=== PATIENT | female | born 1990 | race Caucasian/White ===

== ENCOUNTER 2017-09-26 11:01 | Emergency (ER) | payer MEDICAID, OTHER ==
[~2017-09-26 11:01] MED LIST: BUTA1CAP4 PO; CEPH500T7 PO; CIPR-344 PO; CITA-156 PO; CLIN300C99 PO; ETHI1TAB3 PO; FAMO20TA28 PO; FLUO40CA76 PO; HYDR-317 PO; HYDR-318 PO; HYDR2TAB74 PO; IBUP-1671 PO; IBUP200C71 PO; IBUP600T22 PO; KET10 PO; MAGNESIUM PO; METH4TAB66 PO; ONDA4TAB PO; ONDA4TAB9 PO; ONDA4TAB97 PO; OXYC-373 PO; OXYC-374 PO; PER PO; PHEN200T32 PO; PROM-110 PO; SULF-198 PO; TAMS0.4C25 PO; [UNRECOGNIZED DRUG - CODE] PO
[2017-09-26 11:05] VITALS: BP 98/86
[2017-09-26] MEDS ORDERED: VENL37.594 PO (11:12)
--- NOTE | 2017-09-26 11:25 | ER Report ---
History and Physical Time Seen By MD: 11:13 Hx. of Stated Complaint: cough, sob, been sick almost two weeks. on antibiotics HPI/ROS chief concern: cough x2 weeks HPI: 26 y/o female presents with concern of productive cough [id number]. Reports 1.5 weeks ago, she was seen in an urgent care due to cough and dyspnea that did not resolve with use of her nebulizer. She was provided with an albuterol inhaler, with no relief of symptoms. She was given a 4 day course of steroids, with initial relief, but symptoms returned. Three days ago, she returned and was given azithromycin x5days and 1day dose of steroids. Reports her symptoms have worsened, she is experiencing chills and excessive diaphoresis but no recorded temperature. She is experiencing wheezing, chest tightness, right ear pain, new onset nausea and diarrhea x2-3 days. Reports she has been using albuterol inhaler every 4-6 hours for the past week. Review of Systems: General: Reports chills/sweats. Denies temperature HENT: Reports right ear pain, denies sore throat. Respiratory: Reports productive cough, wheezing, chest tightness, shortness of breath CV: Denies chest pain, palpitations GI: Reports nausea and diarrhea, denies hematochezia, mucus, hematemesis. Allergies: Coded Allergies: Cephalosporins (Verified Allergy, Severe, ANAPHYLAXIS, 09/26/17) amoxicillin (Verified Allergy, Intermediate, RASH, 09/26/17) Home Meds Active Scripts Ipratropium/Albuterol Sulfate (IPRAT-ALBUT 0.5-3(2.5) MG/3 ML) 3 Ml Ampul.neb, 3 ML IH Q4-6H for asthma for 14 Days, #20 VIAL Prov:HORACE ONEAL 09/26/17 Promethazine HCl/Codeine (Prometh-Codein 6.25-10 mg/5 ml) 5 Ml Syrup, 1 TSP PO QHS Y for COUGH, #120 ML Prov:HORACE ONEAL 09/26/17 Hydrocodone/Acetaminophen (Lortab 7.5-325 mg Tablet) 1 Each Tablet, 1 TAB PO Q4- 6H Y for MODERATE PAIN, #20 TAB Prov:DAVION GILL MD 05/01/16 Reported Medications Venlafaxine Hcl (EFFEXOR XR) 37.5 Mg Cap.er.24h, 37.5 MG PO QDAY 09/26/17 Hydrocodone/Acetaminophen (Lortab 7.5-325 mg Tablet) 1 Each Tablet, 1 TAB PO Q4- 6H Y for PAIN, #30 TAKE ONE TABLET BY MOUTH EVERY 4-6 HOURS NEEDED FOR PAIN 04/24/16 Ibuprofen (IBUPROFEN) 600 Mg Tablet, 1 TAB PO TID Y for PAIN, #50 TAB 04/24/16 Famotidine (PEPCID) 20 Mg Tablet, 20 MG PO BID, #20 TAB 04/24/16 Fluoxetine Hcl (PROZAC) 40 Mg Capsule, 40 MG PO QDAY, CAPSULE 08/05/15 Discontinued Reported Medications Ciprofloxacin Hcl (CIPRO) 500 Mg Tablet, 250 MG PO BIDAC, #10 CIPRO 50O MG : TAKE 1/2 TABLE BY MOUTH TWICE DAILY 04/24/16 Phenazopyridine Hcl (PHENAZOPYRIDINE HCL) 200 Mg Tablet, 200 MG PO TID Y for BLADDER SPASMS, TAB 04/03/16 [Magnesium] No Conflict Check, 400 MG PO DAILY 03/30/16 Discontinued Scripts Ondansetron (ZOFRAN ODT) 4 Mg Tab.rapdis, 4 MG PO Q4-6H Y for NAUSEA, #15 TAB Prov:DAVION GILL MD 05/01/16 Ketorolac Tromethamine (KETOROLAC TROMETHAMINE) 10 Mg Tab, 10 MG PO Q8H Y for PAIN, #15 TAB TAKE ONE TABLET BY MOUTH EVERY SIX HOURS FOR PAIN Prov:DAVION GILL MD 05/01/16 Ondansetron Hcl (ZOFRAN) 4 Mg Tablet, 4 MG PO Q6H Y for NAUSEA/VOMITING, #12 TAB Prov:KEITH DESAI DO 04/03/16 Past Medical/Surgical History asthma; history of depression; history of controlled migraines; History of kidney stones with stent placed 2015; frequent UTI; right ankle fracture 2011; Reviewed Nurses Notes: Yes Old Medical Records Reviewed: No Hx Smoking: No Smoking Status: Never Smoker Exposure to Second Hand Smoke?: No Hx Substance Use Disorder: No Hx Alcohol Use: No Constitutional Vital Sign - Last 24 Hours 09/26/17 09/26/17 09/26/17 11:05 11:46 11:52 Temp 98.1 Pulse 104 108 98 Resp 16 18 16 B/P (MAP) 98/86 Pulse Ox 90 O2 Delivery Room Air Physical Exam Physical Exam: General: Alert, oriented x3; in no acute respiratory distress. Diaphoretic during exam. HENT: TMs pearly rosas, no erythema to canals. Posterior pharynx pink. No lymphadenopathy. Respiratory: Coarse crackles scattered throughout. No gasping. Normal respiratory effort. CV: regular rate and rhythm. No peripheral edema. GI: bowel sounds normoactive all quadrants. No tenderness to palpation. After obtaining thorough HPI and ROS, the following differentials were considered but not limited to: pneumonia, bronchitis, seasonal influenza, asthma exacerbation. Medical Decision Making Data Points Result Diagram: 09/26/17 1122 09/26/17 1122 Laboratory Hematology Test 09/26/17 11:22 Red Blood Count 5.55 M/uL (4.17-5.56) Mean Corpuscular Volume 90.0 fL (80.0-96.0) Mean Corpuscular Hemoglobin 30.8 pg (26.0-33.0) Mean Corpuscular Hemoglobin Concent 34.2 g/dL (32.0-36.0) Red Cell Distribution Width 12.5 % (11.5-14.5) Mean Platelet Volume 8.0 fL (7.2-11.1) Neutrophils (%) (Auto) 49.3 % (39.4-72.5) Lymphocytes (%) (Auto) 31.5 % (17.6-49.6) Monocytes (%) (Auto) 16.8 % (4.1-12.4) Eosinophils (%) (Auto) 1.6 % (0.4-6.7) Basophils (%) (Auto) 0.8 % (0.3-1.4) Nucleated RBC Relative Count (auto) 0.0 /100WBC Neutrophils # (Auto) 4.1 K/uL (2.0-7.4) Lymphocytes # (Auto) 2.6 K/uL (1.3-3.6) Monocytes # (Auto) 1.4 K/uL (0.3-1.0) Eosinophils # (Auto) 0.1 K/uL (0.0-0.5) Basophils # (Auto) 0.1 K/uL (0.0-0.1) Nucleated RBC Absolute Count (auto) 0.00 K/uL Sodium Level 135 mmol/L (137-145) Potassium Level 3.9 mmol/L (3.5-5.0) Chloride Level 102 mmol/L (98-107) Carbon Dioxide Level 23 mmol/L (22-31) Blood Urea Nitrogen 14 mg/dl (7-18) Creatinine 0.70 mg/dl (0.52-1.04) Glomerular Filtration Rate Calc > 60.0 Random Glucose 84 mg/dl (75-110) Calcium Level 9.7 mg/dl (8.4-10.2) Total Bilirubin 0.5 mg/dl (0.2-1.3) Aspartate Amino Transf (AST/SGOT) 22 U/L (0-35) Alanine Aminotransferase (ALT/SGPT) 48 U/L (0-56) Alkaline Phosphatase 128 U/L (0-126) Total Protein 7.1 gm/dl (6.3-8.2) Albumin 3.8 g/dl (3.5-5.0) Influenza Virus Type A (PCR) Negative (NEGATIVE) Influenza Virus Type B (PCR) Negative (NEGATIVE) Chemistry Test 09/26/17 11:22 White Blood Count 8.4 k/uL (4.5-11.0) Red Blood Count 5.55 M/uL (4.17-5.56) Hemoglobin 17.1 g/dL (12.0-16.0) Hematocrit 50.0 % (34.0-47.0) Mean Corpuscular Volume 90.0 fL (80.0-96.0) Mean Corpuscular Hemoglobin 30.8 pg (26.0-33.0) Mean Corpuscular Hemoglobin Concent 34.2 g/dL (32.0-36.0) Red Cell Distribution Width 12.5 % (11.5-14.5) Platelet Count 253 K/uL (150-450) Mean Platelet Volume 8.0 fL (7.2-11.1) Neutrophils (%) (Auto) 49.3 % (39.4-72.5) Lymphocytes (%) (Auto) 31.5 % (17.6-49.6) Monocytes (%) (Auto) 16.8 % (4.1-12.4) Eosinophils (%) (Auto) 1.6 % (0.4-6.7) Basophils (%) (Auto) 0.8 % (0.3-1.4) Nucleated RBC Relative Count (auto) 0.0 /100WBC Neutrophils # (Auto) 4.1 K/uL (2.0-7.4) Lymphocytes # (Auto) 2.6 K/uL (1.3-3.6) Monocytes # (Auto) 1.4 K/uL (0.3-1.0) Eosinophils # (Auto) 0.1 K/uL (0.0-0.5) Basophils # (Auto) 0.1 K/uL (0.0-0.1) Nucleated RBC Absolute Count (auto) 0.00 K/uL Glomerular Filtration Rate Calc > 60.0 Calcium Level 9.7 mg/dl (8.4-10.2) Total Bilirubin 0.5 mg/dl (0.2-1.3) Aspartate Amino Transf (AST/SGOT) 22 U/L (0-35) Alanine Aminotransferase (ALT/SGPT) 48 U/L (0-56) Alkaline Phosphatase 128 U/L (0-126) Total Protein 7.1 gm/dl (6.3-8.2) Albumin 3.8 g/dl (3.5-5.0) Influenza Virus Type A (PCR) Negative (NEGATIVE) Influenza Virus Type B (PCR) Negative (NEGATIVE) ED Course/Re-evaluation ED Course Patient admitted to exam room. Thorough HPI and ROS obtained. Physical exam revealed coarse crackles throughout; normal respiratory effort. Regular heart rate and rhythm. Bowel sounds normoactive with no tenderness to palpation. The following differentials were considered but not limited to: pneumonia, bronchitis, seasonal influenza, asthma exacerbation. Patient was given a duoneb treatment with reported improvements. Tests completed included: CBC, CMP, chest x-ray, seasonal influenza. CBC showed no signs of infection or hemodynamic instability. CMP showed electrolytes and organ function within normal limits. Seasonal influenza test negative. Chest x-ray Findings: The lungs are free of acute effusions, infiltrates or edema. The cardiac silhouette is normal in size. The trachea is in midline. IMPRESSION: 1. No acute cardiac pulmonary process seen Test findings and diagnosis of bronchitis were discussed with patient. Prescribed duoneb for at home use, promethazine/codeine cough syrup for use at bedtime; recommended rest, increased fluid intake. Patient verbalised understanding and agreed to plan. Decision to Disposition Date: Sep 26, 2017 Decision to Disposition Time: 12:50 Depart Departure Latest Vital Signs Vital Signs Date Time Temp Pulse Resp B/P (MAP) Pulse Ox O2 Delivery O2 Flow Rate FiO2 09/26/17 11:52 98 16 09/26/17 11:05 98.1 98/86 90 Room Air Impression: Primary Impression: Bronchitis Condition: Improved Disposition: HOME OR SELF-CARE New Scripts Ipratropium/Albuterol Sulfate (IPRAT-ALBUT 0.5-3(2.5) MG/3 ML) 3 Ml Ampul.neb 3 ML IH Q4-6H for asthma for 14 Days, #20 VIAL Prov: HORACE ONEAL 09/26/17 Promethazine HCl/Codeine (Prometh-Codein 6.25-10 mg/5 ml) 5 Ml Syrup 1 TSP PO QHS Y for COUGH, #120 ML Prov: HORACE ONEAL 09/26/17 Patient Instructions: Acute Bronchitis (ED) Additional Instructions: Rest, increase fluid intake. Take codeine cough syrup and duonebulizer treatments as directed. Follow up with your primary care provider within the next week. Return to ED if you experience difficulty breathing that does not respond to treatment, or your symptoms worsen. HORACE ONEAL Sep 26, 2017 11:25
[2017-09-26] MEDS ORDERED: ALBUTEROL/IPRATROPIUM 3 ML NEB NEB ONE (11:30)
[2017-09-26 11:51] LABS: PLATELET COUNT, AUTOMATED 253 K/uL (150-450)
[2017-09-26] MEDS ORDERED: ONDANSETRON 4 MG ODT TABDP SL ONE (12:20)
--- NOTE | 2017-09-26 12:23 | RADIOLOGY IMAGING REPORT ---
FACILITY: [facility] - [place] PATIENT NAME: María Elena Phillips : 1990 MR: [id number] V: [id number] EXAM DATE: ORDERING PHYSICIAN: HORACE ONEAL TECHNOLOGIST: Location: [facility] - [place] Patient: María Elena Phillips : 1990 Visit/Account:[id number] Date of Sevice: 09/26/2017 Exam type: CHEST PA AND LAT History: Cough x2 weeks Comparison: None. Findings: The lungs are free of acute effusions, infiltrates or edema. The cardiac silhouette is normal in siz e. The trachea is in midline. IMPRESSION: 1. No acute cardiac pulmonary process seen Report Dictated By: Faiza Collado MD at 09/26/2017 12:19 PM Report E-Signed By: Faiza Collado MD at 09/26/2017 12:19 PM WSN:[email or web address]
[2017-09-26] MEDS ORDERED: IPRA3AMP21 IH (12:47)
[2017-09-26] MEDS ORDERED: PROM5SYR PO (12:47)
== END 2017-09-26 12:57 | disposition home or self-care (01) ==
LOC: ER 11:16
DX: J40 Bronchitis, not specified as acute or chronic (principal)
CPT/HCPCS: 71046; 85025; 87502; 94640; 99284; J7620; S0119; 82040; 82247; 82310; 82374; 82435; 82565; 82947; 84075; 84132; 84155; 84295; 84450; 84460; 84520